=== PATIENT | male | born 1935 | race Caucasian/White ===

== ENCOUNTER → 2018-02-20 | Outpatient (CLI) | payer OTHER ==
[~2018-02-20] MED LIST: IOPAMIDOL (ISOVUE 370) 100 ML BTL IV ONE
== END ==
LOC: FIMAGING 12:13
PROVIDERS: ATTEND Physician Assistant Surgical
DX: I67.1 Cerebral aneurysm, nonruptured (principal); I65.01 Occlusion and stenosis of right vertebral artery
CPT/HCPCS: 70496; Q9967; 82565-PO